=== PATIENT | female | born 1980 | race African-American/Black ===

== ENCOUNTER 2017-12-12 11:43 | Emergency (ER) | payer MEDICAID ==
--- NOTE | 2017-12-12 14:51 | EDPHY ---
General - History Smoking Status: Heavy smoker Narrative: CHIEF COMPLAINT: Fall, right shoulder pain HISTORY OF PRESENT ILLNESS: Patient complains of pain in the right shoulder. This started yesterday when she slipped and fell. She said she tried to brace herself with an outstretched right arm. She did not strike her shoulder but felt a sudden onset of pain. Is severe. Worse with any kind of movement. No numbness or tingling. Unable to abduct due to pain. No other complaints elsewhere. No other associated complaints or modifying factors. ESTABLISHED ORTHOPEDIST: None REVIEW OF SYSTEMS: Ten systems reviewed and are negative unless otherwise noted in the HPI PAST MEDICAL HISTORY: None PAST SURGICAL HISTORY: None SOCIAL HISTORY: Works as a caregiver FAMILY HISTORY: Noncontributory EXAMINATION General Appearance: Alert, no distress Cardiovascular: Symmetric radial pulses 2+. Brisk cap refill Neurological: A&O, C5 sensation symmetric. Interossei strength symmetric. Skin: Warm and dry, no rash. No petechiae, purpura, puncture laceration Extremities: Tenderness of the right humeral head. Range of motion not tested due to significant pain. Range of motion of the right elbow and wrist intact. Grease Buffer strength symmetric. Psychiatric: Mood and affect normal DIFFERENTIAL DIAGNOSES: Including but not limited to contusion, hematoma, fracture, dislocation, fracture dislocation, sprain, strain MDM: 2:50 p.m. Mechanical fall yesterday morning with fracture of the greater tuberosity of the humerus on x-ray. She is neurovascular intact distally. No trauma elsewhere. I will contact orthopedist due to the young age of the patient. 4:00 p.m. We made multiple attempts to try to contact the orthopedist on-call. There seems to be communication error. At this point the patient will be discharged home with sling. We discussed removing the sling intermittently for range-of- motion exercises. We discussed ice, anti-inflammatories and short course of pain medication. She was provided the on-call orthopedist information to contact for outpatient follow-up. We discussed ED precautions. This was a work related injury and she is already in contact with her boss for worker's compensation follow-up. She is discharged home stable condition. SUPERVISION: This patient was independently evaluated without direct involvement of or examination by the attending physician. ED Precautions: Worsening pain. Erythema, edema, cyanosis, pallor, paresthesia or anesthesia. (Cayden Herrera) Discussion: The patient was evaluated and managed by the Physician Supply Chain Coordinator. My co- signature indicates that I have reviewed this chart and I agree with the findings and plan of care as documented. I am the secondary supervising physician. (Tana Hopkins) - Objective Vital Signs: Initial Vital Signs Temperature (C) 36.3 C 12/12/17 12:05 Heart Rate 110 H 12/12/17 12:05 Respiratory Rate 16 12/12/17 12:05 Blood Pressure 132/75 H 12/12/17 12:05 O2 Sat (%) 95 12/12/17 12:05 O2 Delivery Mode Room Air Allergies/Adverse Reactions: No Known Allergies Allergy (Unverified 12/12/17 12:05) Home Medications: Medication Instructions Recorded oxyCODONE HCL/ACETAMINOPHEN 1 each PO Q4-6PRN PRN #20 tablet 12/12/17 [Percocet 5-325 mg Tablet] Departure - Departure Disposition: Home, Routine, Self-Care Clinical Impression: Greater tuberosity of humerus fracture Qualifiers: Encounter type: initial encounter Fracture type: closed Fracture alignment: nondisplaced Laterality: right Qualified Code(s): S42.254A - Nondisplaced fracture of greater tuberosity of right humerus, initial encounter for closed fracture Condition: Good Instructions: Proximal Humerus Fracture (ED) Additional Instructions: 1. Anti-inflammatories [id number] as discussed 2. Sling as provided as discussed 3. Contact the on-call orthopedist Dr. Zelaya as provided 4. Pain medication as prescribed as needed 5. ED precautions as discussed Referrals: Luis Zelaya MD [Medical Doctor] - As per Instructions Leon Acosta MD [Medical Doctor] - As per Instructions Stand Alone Forms: Work Comp Follow Up, Work Excuse Prescriptions: oxyCODONE HCL/ACETAMINOPHEN [Percocet 5-325 mg Tablet] 1 each PO Q4-6PRN PRN # 20 tablet PRN Reason: Pain, Breakthrough
[2017-12-12 16:07] VITALS: BP 122/77; PULSE 68; RESP 18; TEMP 98.6; O2SAT 96
== END 2017-12-12 16:05 | disposition home or self-care (01) ==
DX: S42.254A Nondisplaced fracture of greater tuberosity of right humerus, initial encounter for closed fracture (principal); F17.200 Nicotine dependence, unspecified, uncomplicated; W01.0XXA Fall on same level from slipping, tripping and stumbling without subsequent striking against object, initial encounter

== ENCOUNTER → 2018-01-04 | Outpatient (CLI) | payer MEDICAID | LOC: FIMAGING 14:01 | PROVIDERS: ATTEND Physician Assistant | DX: S42.294P Other nondisplaced fracture of upper end of right humerus, subsequent encounter for fracture with malunion (principal) ==

== ENCOUNTER → 2018-01-08 | Outpatient (CLI) | payer MEDICAID | LOC: BMCIMAGING 13:12 | PROVIDERS: ATTEND Orthopaedic Surgery Hand Surgery | DX: S42.251D Displaced fracture of greater tuberosity of right humerus, subsequent encounter for fracture with routine healing (principal) ==

== ENCOUNTER → 2018-01-18 | Outpatient (CLI) | payer MEDICAID | LOC: CIMAGING 10:16 | PROVIDERS: ATTEND Orthopaedic Surgery Hand Surgery | DX: S42.251A Displaced fracture of greater tuberosity of right humerus, initial encounter for closed fracture (principal) | CPT/HCPCS: 73200-PO ==

== ENCOUNTER → 2018-02-19 | Outpatient (CLI) | payer MEDICAID | LOC: BMCIMAGING 09:47 | PROVIDERS: ATTEND Orthopaedic Surgery Hand Surgery | DX: S42.251D Displaced fracture of greater tuberosity of right humerus, subsequent encounter for fracture with routine healing (principal) ==